=== PATIENT | female | born 1990 | race Caucasian/White ===

== ENCOUNTER 2024-01-28 12:09 | Outpatient (CLI) | payer OTHER ==
[2024-01-28 12:34] LABS: Basophils % (A) 0 %; Eosinophils # (A) 0.2 k/uL (0-0.7); Eosinophils % (A) 2 %; HCT 36.2 % (34.0-46.0); HGB 12.1 gm/dL (11.4-16.0); Lymphocytes # (A) 1.1 k/uL (1.0-4.8); Lymphocytes % (A) 10 %; MCH 28.7 pg (25.0-35.0); MCHC 33.4 g/dL (31.0-37.0); Mean Platelet Volume 9.1; Monocytes # (A) 0.5 k/uL (0-1.0); Monocytes % (A) 4 %; Neutrophils # (A) 9.3 k/uL (1.3-7.7); Neutrophils % (A) 83 %; Platelet Count 249 k/uL (150-450); RBC 4.21 m/uL (3.80-5.40); RDW 14.2 % (11.5-15.5); WBC 11.2 k/uL (3.8-10.6)
[2024-01-28 12:39] LABS: Appearance,Urine Clear (Clear); Bilirubin,Urine Negative (Negative); Blood,Urine Negative (Negative); Color,Urine Colorless; Glucose,Urine (UA) Negative (Negative); Ketones,Urine Negative (Negative); Leukocyte Esterase,Urine Negative (Negative); Nitrite,Urine Negative (Negative); Protein,Urine Negative (Negative); Specific Gravity,Urine 1.006 (1.001-1.035); Urobilinogen,Urine <2.0 mg/dL (<2.0)
[2024-01-28 12:47] LABS: Uric Acid 5.2 mg/dL (3.7-7.4)
[2024-01-28 12:59] LABS: Creatinine,Urine Random 43.8 mg/dL; Protein/Creatinine Ratio,Urine 0.205
[2024-01-28] MEDS: LABETALOL 100 MG TAB PO STA (13:09)
--- NOTE | 2024-01-30 08:19 | P.MSEPDOC ---
Presenting Problems - Arrival Data Date of Arrival on Unit: 01/28/24 Time of Arrival on Unit: 12:00 Mode of Transport: Ambulatory - Complaint OB-Reason for Admission/Chief Complaint: PIH Medical History - Information : 1 Para: 0 Term: 0 : 0 Abortions: Spontaneous or Elective: 0 Number of Living Children: 0 - Gestational Age Gestational Age by CHELSEY (wks/days): 34 Weeks and 1 Days - History Comment: HTN Review of Systems - Review of Systems Constitutional: No problems Breast: No problems ENT: No problems Cardiovascular: No problems Respiratory: No problems Gastrointestinal: No problems Genitourinary: No problems Musculoskeletal: No problems Neurological: No problems Skin: No problems Medical Screen Scoring - Assessment - Baby A Baseline FHR: 135 Heart Rate - NICHD Category: Category I (Normal) NST: Reactive Physician Notification - Physician Notified Physician Notified Date: 01/28/24 Physician Notified Time: 13:02 Physician: Dr Serra New Order Received: Yes (give labetelol 100 mg, recheck BP in 30-45 minutes.) Maternal Triage Index - Maternal Triage Index Presenting for scheduled procedure w/no complaint: Yes - Scheduled/Requesting Priority 5 Scheduled/Requesting Priority 5: Yes Criteria Met for Priority 5: sent over from office with [facility] workup orders. Disposition - Disposition OB Disposition: Discharge to home Discharge Date: 01/28/24 Discharge Time: 14:08 I agree with the RN Medical Screening Exam: Yes Case reviewed; plan agreed upon as documented in EMR&OBIX.: Yes Diagnosis: GESTATIONAL HTN W/O SIGNIFICANT PROTEINURIA, THIRD TRIMESTER
== END 2024-01-28 14:08 | disposition home or self-care (01) ==
LOC: FBPOP 12:09
PROVIDERS: ATTEND Obstetrics & Gynecology Obstetrics
DX: O13.3 Gestational [pregnancy-induced] hypertension without significant proteinuria, third trimester (principal); Z3A.34 34 weeks gestation of pregnancy
CPT/HCPCS: 36415; 59025; 81003; 82570; 83615; 84156; 84450; 84460; 84550; 85025; 99215

== ENCOUNTER 2024-01-31 16:15 | Observation (INO) | payer OTHER ==
[2024-01-31 17:03] LABS: Basophils % (A) 0 %; Eosinophils # (A) 0.2 k/uL (0-0.7); Eosinophils % (A) 2 %; HCT 35.7 % (34.0-46.0); HGB 11.9 gm/dL (11.4-16.0); Lymphocytes # (A) 1.2 k/uL (1.0-4.8); Lymphocytes % (A) 11 %; MCHC 33.4 g/dL (31.0-37.0); MCV 86.7 fL (80.0-100.0); Mean Platelet Volume 8.3; Monocytes # (A) 0.5 k/uL (0-1.0); Monocytes % (A) 5 %; Neutrophils # (A) 9.4 k/uL (1.3-7.7); Neutrophils % (A) 82 %; Platelet Count 248 k/uL (150-450); RBC 4.11 m/uL (3.80-5.40); RDW 13.8 % (11.5-15.5); WBC 11.4 k/uL (3.8-10.6)
[2024-01-31] MEDS: ACETAMINOPHEN TAB 500 MG TAB PO STA (17:03)
[2024-01-31] MEDS: LACTATED RINGERS 1,000 ML IV SCH (17:07)
[2024-01-31 17:12] LABS: ALT 20 U/L (4-34); AST 27 U/L (14-36); African American GFR (CKD) >90 (>60 ml/min/1.73 sqM); Blood Urea Nitrogen 10 mg/dL (7-17); Non-African American GFR(CKD) >90 (>60 ml/min/1.73 sqM); Uric Acid 5.2 mg/dL (3.7-7.4)
[2024-01-31 17:16] LABS: LDH 270 U/L (120-246)
[2024-01-31] MEDS: LABETALOL 200 MG TAB PO SCH (20:45)
[2024-01-31] MEDS: diphenhydrAMINE 25 MG CAP PO PRN (20:45)
--- NOTE | 2024-02-01 09:15 | P.HPOB ---
History of Present Illness H&P Date: 02/01/24 Chief Complaint: IUP at 34-5/7 weeks, gestational hypertension This is a 33-year-old 1 para 0 at 34-5/7 weeks, estimated due date of 03/09 based on last menstrual period. Patient was seen in the office yesterday after noted elevated blood pressures on 01/27. Patient was seen in labor and delivery negative preeclampsia labs were noted, protein creatinine ratio was 0 .2, patient was sent home with labetalol twice daily. Patient noted increased blood pressures through the week, labetalol was increased to 200 mg twice daily. Patient presented to the office today for follow-up. Blood pressure noted to be slightly elevated 130s to 140s over 80s, patient did note a slight headache. Patient has not been sleeping well and is concerned about her blood pressures. Patient in addition reveals she is renovating her home and has been quite busy getting the house ready for the baby. Patient was observed through the night given headache and blood pressures. Patient states she is feeling well this morning. She did sleep last night and headache has resolved. Awaiting 24-hour urine result later this afternoon. On blood work this patient is of the type of O-, rubella status immune, RPR is nonreactive, hepatitis B surface engine is negative, HIV is negative, HCV is negative, she did pass her 1 hour Glucola on 12/16 with a result of 106, she received RhoGAM on 1021. Review of Systems Constitutional: Denies chills, Denies fatigue, Denies fever Ears, nose, mouth and throat: Denies headache Cardiovascular: Reports leg edema Respiratory: Denies dyspnea Gastrointestinal: Denies constipation, Denies diarrhea, Denies nausea, Denies vomiting Genitourinary: Reports Past Medical History History of Any Multi-Drug Resistant Organisms: None Reported Past Anesthesia/Blood Transfusion Reactions: No Reported Reaction Past Psychological History: No Psychological Hx Reported Smoking Status: Never smoker Past Alcohol Use History: None Reported Past Drug Use History: None Reported - Past Family History Mother Additional Family Medical History / Comment(s): Colorectal cancer Father Family Medical History: Coronary Artery Disease (CAD) Additional Family Medical History / Comment(s): melanoma Medications and Allergies Home Medications Medication Instructions Recorded Confirmed Type Aspirin [Adult Low Dose Aspirin EC] 81 mg PO DAILY 01/28/24 01/31/24 History [place]-3/Dha/Epa/Fish Oil [Fish Oil 1 tablet PO DAILY 01/28/24 01/31/24 History 1,000 mg Softgel] Omeprazole [PriLOSEC] 10 mg PO DAILY 01/28/24 01/31/24 History Vit No.179/Iron/Folic 1 tablet PO DAILY 01/28/24 01/31/24 History [ Tablet] Labetalol [Trandate] 200 mg PO BID 01/31/24 01/31/24 History Allergies Allergy/AdvReac Type Severity Reaction Status Date / Time No Known Allergies Allergy Verified 01/31/24 16:34 Exam Osteopathic Statement: *. No significant issues noted on an osteopathic structural exam other than those noted in the History and Physical/Consult. Vital Signs Temp Pulse Resp BP Pulse Ox 01/31/24 16:34 97.7 F 86 18 140/82 99 Intake and Output 01/31/24 02/01/24 02/01/24 22:59 06:59 14:59 Intake Total 600 600 Balance 600 600 Intake: Oral 600 600 Other: # Voids 1 2 Weight 136.078 kg Targeted physical exam is performed this date General Is a well-nourished well- developed female in no acute distress, breathing is nonlabored, heart has a regular rate and rhythm, abdomen is gravid and appropriate for gestational age, heart tones have been category 1 on nonstress test. Cervical exam is deferred. Recent blood pressure 130 over 80s, this is prior to her morning labetalol dose. Results Result Diagrams: 01/31/24 16:52 01/31/24 16:52 Abnormal Lab Results - Last 24 Hours (Table) 01/31/24 01/31/24 Range/Units 16:52 16:52 WBC 11.4 H (3.8-10.6) k/uL Neutrophils # 9.4 H (1.3-7.7) k/uL Lactate Dehydrogenase 270 H (120-246) U/L Assessment and Plan (1) 34 weeks gestation of Current Visit: Yes Status: Acute Code(s): Z3A.34 - 34 WEEKS GESTATION OF SNOMED Code(s): 53654073 (2) Gestational hypertension Current Visit: Yes Status: Acute Code(s): O13.9 - GESTATIONAL HTN W/O SIGNIFICANT PROTEINURIA, UNSP TRIMESTER SNOMED Code(s): 61963615 Plan: 33-year-old 1 para 0 at 34-5/7 weeks with known gestational hypertension. Patient seen in the office yesterday with headache. Patient was sent to OB triage for observation overnight given headache and blood pressure concerns. Patient did well through the night. Patient states headache has resolved. Awaiting 24-hour urine collection. Initial preeclampsia labs noted to be negative. Plan reviewed with patient, questions are answered. Patient is to be taken off work and note was given at her office visit yesterday, will plan modified bedrest if discharged later today.
[2024-02-01 09:56] VITALS: RESP 16
[2024-02-01 17:10] VITALS: TEMP 98.8
[2024-02-01] MEDS: ACETAMINOPHEN TAB 500 MG TAB PO PRN (17:14)
[2024-02-01 18:27] LABS: Total Protein 24 Hour,Urine 660 mg/24hr (42.0-225.0); Total Volume 24 Hour,Urine 6000 mls (800-1800)
[2024-02-01 18:45] VITALS: PULSE 76
[2024-02-01 19:27] LABS: 24-hr Urine Specific Gravity 1.008 (1.001-1.035)
[2024-02-01 19:41] VITALS: BP 134/88
== END 2024-02-01 19:30 | disposition home or self-care (01) ==
LOC: 4FBP 16:15 → INTOOBSV 16:15
PROVIDERS: ADMIT Obstetrics & Gynecology Obstetrics; ATTEND Obstetrics & Gynecology Obstetrics
DX: O13.3 Gestational [pregnancy-induced] hypertension without significant proteinuria, third trimester (principal); Z3A.34 34 weeks gestation of pregnancy; Z79.82 Long term (current) use of aspirin; Z79.899 Other long term (current) drug therapy
CPT/HCPCS: 96360; 96361; 81050; 82565; 83615; 84450; 84460; 84520; 84550; 85025; 84156; G0379; G0378 ×2

== ENCOUNTER 2024-02-11 12:15 | Outpatient (CLI) | payer OTHER ==
[2024-02-11 12:41] VITALS: BP 138/83; PULSE 84; RESP 18; TEMP 96.6
[2024-02-11 12:52] LABS: Appearance,Urine Clear (Clear); Bilirubin,Urine Negative (Negative); Blood,Urine Negative (Negative); Color,Urine Colorless; Glucose,Urine (UA) Negative (Negative); Ketones,Urine Negative (Negative); Leukocyte Esterase,Urine Negative (Negative); Nitrite,Urine Negative (Negative); Protein,Urine Negative (Negative); Specific Gravity,Urine 1.003 (1.001-1.035); Urobilinogen,Urine <2.0 mg/dL (<2.0)
[2024-02-11 13:02] LABS: Basophils % (A) 0 %; Eosinophils # (A) 0.2 k/uL (0-0.7); Eosinophils % (A) 2 %; HCT 36.8 % (34.0-46.0); HGB 11.9 gm/dL (11.4-16.0); Lymphocytes # (A) 1.2 k/uL (1.0-4.8); Lymphocytes % (A) 10 %; MCH 28.3 pg (25.0-35.0); MCHC 32.5 g/dL (31.0-37.0); MCV 87.1 fL (80.0-100.0); Mean Platelet Volume 8.5; Monocytes # (A) 0.7 k/uL (0-1.0); Monocytes % (A) 6 %; Neutrophils % (A) 81 %; Platelet Count 263 k/uL (150-450); RBC 4.22 m/uL (3.80-5.40); RDW 13.9 % (11.5-15.5); WBC 12.3 k/uL (3.8-10.6)
[2024-02-11 13:10] LABS: ALT 19 U/L (4-34); AST 23 U/L (14-36); African American GFR (CKD) >90 (>60 ml/min/1.73 sqM); Blood Urea Nitrogen 9 mg/dL (7-17); Non-African American GFR(CKD) >90 (>60 ml/min/1.73 sqM); Uric Acid 5.5 mg/dL (3.7-7.4)
[2024-02-11 13:29] LABS: Creatinine,Urine Random 18.3 mg/dL; Protein/Creatinine Ratio,Urine 0.71
--- NOTE | 2024-02-15 08:43 | P.MSEPDOC ---
Presenting Problems - Arrival Data Date of Arrival on Unit: 02/11/24 Time of Arrival on Unit: 12:15 Mode of Transport: Ambulatory - Complaint OB-Reason for Admission/Chief Complaint: PIH Comment: Pt presents to triage with written order for PIH work up Medical History - Information : 1 Para: 0 - Gestational Age Gestational Age by CHELSEY (wks/days): 36 Weeks and 1 Days Review of Systems - Review of Systems Constitutional: No problems Breast: No problems ENT: No problems Cardiovascular: No problems Respiratory: No problems Gastrointestinal: No problems Genitourinary: No problems Musculoskeletal: No problems Neurological: No problems Skin: No problems Vital Signs - Temperature Temperature: 96.6 F Temperature Source: Temporal Artery Scan - Pulse Brachial Pulse Rate: 84 Pulse Assessment Method: Automatic Cuff - Respirations Respiratory Rate: 18 Oxygen Delivery Method: Room Air - Blood Pressure Right Arm Sitting Blood Pressure: 138/83 Blood Pressure Mean: 101 Blood Pressure Source: Automatic Cuff Physician Notification - Physician Notified Physician Notified Date: 02/11/24 Physician Notified Time: 12:15 Physician: Kristy Serra New Order Received: Yes - Notification Comment Comment: Spk c\Dr. Serra, aware of pt and triage visit. Reviewed labs and BPs. Pt to keep appt for dilapan placement 02/13. Pt to be discharged home c\Pree instructions. Maternal Triage Index - Maternal Triage Index Presenting for scheduled procedure w/no complaint: Yes - Scheduled/Requesting Priority 5 Scheduled/Requesting Priority 5: Yes Criteria Met for Priority 5: Pt sent from office for PIH workup r/t elevated BP in office, pt states BPs at home have been WNL. Disposition - Disposition OB Disposition: Observe, Discharge to home, Written follow up instructions reviewed Discharge Date: 02/11/24 Discharge Time: 14:00 I agree with the RN Medical Screening Exam: Yes Case reviewed; plan agreed upon as documented in EMR&OBIX.: Yes Diagnosis: RELATED CONDITIONS, UNSPECIFIED, THIRD TRIMESTER
== END 2024-02-11 13:57 | disposition home or self-care (01) ==
LOC: FBPOP 12:15
PROVIDERS: ATTEND Obstetrics & Gynecology Obstetrics
DX: O26.93 Pregnancy related conditions, unspecified, third trimester (principal); Z3A.36 36 weeks gestation of pregnancy
CPT/HCPCS: 36415; 59025; 81003; 82565; 82570; 84156; 84450; 84460; 84520; 84550; 85025

== ENCOUNTER 2024-02-14 16:19 | Outpatient (CLI) | payer OTHER ==
[2024-02-14 17:33] LABS: Basophils % (A) 0 %; Eosinophils # (A) 0.2 k/uL (0-0.7); Eosinophils % (A) 2 %; HCT 35.8 % (34.0-46.0); HGB 11.9 gm/dL (11.4-16.0); Lymphocytes # (A) 1.2 k/uL (1.0-4.8); Lymphocytes % (A) 11 %; MCH 28.9 pg (25.0-35.0); MCHC 33.3 g/dL (31.0-37.0); MCV 86.8 fL (80.0-100.0); Mean Platelet Volume 8.7; Monocytes # (A) 0.5 k/uL (0-1.0); Monocytes % (A) 4 %; Neutrophils # (A) 9.2 k/uL (1.3-7.7); Neutrophils % (A) 83 %; Platelet Count 275 k/uL (150-450); RBC 4.12 m/uL (3.80-5.40); RDW 14.1 % (11.5-15.5); WBC 11.2 k/uL (3.8-10.6)
[2024-02-14] MEDS: LABETALOL 200 MG TAB PO SCH (18:11)
[2024-02-14 18:18] LABS: Uric Acid 5.8 mg/dL (3.7-7.4)
[2024-02-14 18:50] VITALS: BP 143/73; PULSE 92; RESP 18; TEMP 97.7
[2024-02-14 19:19] LABS: Protein/Creatinine Ratio,Urine 0.245
== END 2024-02-14 20:10 | disposition home or self-care (01) ==
LOC: UNDOADMIN 16:19 → 4FBP 16:19 → FBPOP 16:19 → UNDODISIN 20:10
PROVIDERS: ATTEND Obstetrics & Gynecology Obstetrics
DX: O14.93 Unspecified pre-eclampsia, third trimester (principal); Z3A.39 39 weeks gestation of pregnancy
CPT/HCPCS: 82570; 84156; 84450; 84460; 84520; 84550; 85025

== ENCOUNTER 2024-02-15 19:09 | Inpatient (IN) | payer OTHER ==
[2024-02-15] MEDS ORDERED: OXYTOCIN 10 UNIT/ML 1 ML VIAL IM PRN (19:35)
[2024-02-15] MEDS ORDERED: TRANEXAMIC 1,000 MG/100ML-NACL 1,000 MG in EMPTY BAG 1 BAG IV PRN (19:35)
[2024-02-15] MEDS ORDERED: LIDOCAINE 0.5% (PF) 5 MG/ML (50 ML SDV) SQ PRN (19:35)
[2024-02-15] MEDS ORDERED: METHYLERGONOVINE 0.2 MG/ML 1 ML AMP IM PRN (19:35)
[2024-02-15] MEDS ORDERED: TERBUTALINE 1 MG/ML VIAL SQ PRN (19:35)
[2024-02-15] MEDS ORDERED: miSOPROStoL 200 MCG TAB RECTAL PRN (19:35)
[2024-02-15] MEDS ORDERED: miSOPROStoL 200 MCG TAB PO PRN (19:35)
[2024-02-15] MEDS ORDERED: CARBOPROST TROMETHAMINE 250 MCG/ML 1 ML AMP IM PRN (19:35)
[2024-02-15 19:55] LABS: Basophils % (A) 0 %; Eosinophils # (A) 0.2 k/uL (0-0.7); Eosinophils % (A) 1 %; HCT 36.2 % (34.0-46.0); HGB 11.8 gm/dL (11.4-16.0); Lymphocytes # (A) 1.3 k/uL (1.0-4.8); Lymphocytes % (A) 11 %; MCH 28.5 pg (25.0-35.0); MCHC 32.7 g/dL (31.0-37.0); Mean Platelet Volume 8.7; Monocytes # (A) 0.5 k/uL (0-1.0); Monocytes % (A) 4 %; Neutrophils # (A) 10.1 k/uL (1.3-7.7); Neutrophils % (A) 83 %; Platelet Count 253 k/uL (150-450); RBC 4.16 m/uL (3.80-5.40); RDW 14.1 % (11.5-15.5); WBC 12.2 k/uL (3.8-10.6)
[2024-02-15] MEDS: LABETALOL 200 MG TAB PO SCH (20:03)
--- NOTE | 2024-02-15 20:11 | P.HPOB ---
History of Present Illness H&P Date: 02/15/24 Chief Complaint: IUP at 36-5/7 weeks, preeclampsia severe features 33-year-old 1 para 0 at 36-5/7 weeks, estimated due date 03/09/24 of based on last menstrual period consistent with 9 week ultrasound. Patient would have random elevated blood pressures in the beginning of that resolved on recheck. Patient states she gets very nervous in doctors office and typically blood pressure becomes normal on recheck. Patient had noted normal blood pressures at home. Patient has been followed since 34 weeks for elevated blood pressure and was placed on labetalol 200mg bid. Patient has been undergoing testing and has been seen twice in the hospital for elevated blood pressures in the office 140s to 150s over 90s to 100. Patient did undergo 24-hour urine evaluation, which was noted to be elevated, PCR ratio earlier this week noted to be 0.7. Patient states she has been dealing with a headache all day, no relief with Tylenol. Patient states she just feels off. She has noted increased lower extremity swelling in addition. She denies visual changes. Patient does note good movement. She denies contractions vaginal bleeding or loss of fluid. Ultrasound was completed on 02/06 revealing a 5 pound 14 ounce infant 45th percentile, normal amniotic fluid index of 18.7. Vertex presentation. On blood work this patient is a blood type of O-, rubella status immune, RPR is nonreactive, hepatitis B surface engine is negative, HIV negative, HCV is negative, positive group beta strep culture. She did receive RhoGAM on 12/16. Review of Systems Constitutional: Reports fatigue, Denies chills, Denies fever Ears, nose, mouth and throat: Reports headache Cardiovascular: Reports leg edema Respiratory: Denies dyspnea Gastrointestinal: Reports heartburn, Denies nausea, Denies vomiting Genitourinary: Reports Past Medical History Past Medical History: No Reported History History of Any Multi-Drug Resistant Organisms: None Reported Additional Past Surgical History / Comment(s): colonoscopy Past Anesthesia/Blood Transfusion Reactions: No Reported Reaction Past Psychological History: No Psychological Hx Reported Smoking Status: Never smoker Past Alcohol Use History: None Reported Past Drug Use History: None Reported - Past Family History Mother Additional Family Medical History / Comment(s): Colorectal cancer Father Family Medical History: Coronary Artery Disease (CAD) Additional Family Medical History / Comment(s): melanoma Medications and Allergies Home Medications Medication Instructions Recorded Confirmed Type Aspirin [Adult Low Dose Aspirin EC] 81 mg PO DAILY 01/28/24 02/15/24 History Vit No.179/Iron/Folic 1 tablet PO DAILY 01/28/24 02/15/24 History [ Tablet] Labetalol [Trandate] 200 mg PO BID 01/31/24 02/15/24 History [place]-3/Dha/Epa/Fish Oil [Fish Oil 1 tab PO DAILY 02/15/24 02/15/24 History 1,000 mg Softgel] Allergies Allergy/AdvReac Type Severity Reaction Status Date / Time No Known Allergies Allergy Verified 02/11/24 12:29 Exam Osteopathic Statement: *. No significant issues noted on an osteopathic structural exam other than those noted in the History and Physical/Consult. Vital Signs Temp Pulse Resp BP Pulse Ox 02/15/24 19:26 97.1 F L 99 18 157/85 98 Intake and Output 02/15/24 02/15/24 02/15/24 06:59 14:59 22:59 Other: Weight 136.078 kg Targeted physical exam is performed this date General Is well-nourished well- developed female in no acute distress, breathing appears nonlabored, abdomen is gravid, she is closed on cervical exam, Dilapan procedure is reviewed with patient. Benefits were discussed. Informed consent was obtained. A sterile lighted speculum was placed into the vaginal vault and the cervix was visualized very. The cervix was cleaned with Betadine solution. A sponge stick was then used to grasp the anterior cervical lip and straighten the cervical canal. Another sponge stick was used to grasp the hand le of the Dilapan kong and gently inserted the kong through the external cervical os gradually without force. This was repeated until 5 rods were inserted. When the procedure was completed the vacuum was removed without difficulty. Patient tolerated insertion well Results Result Diagrams: 02/15/24 19:36 Abnormal Lab Results - Last 24 Hours (Table) 02/15/24 Range/Units 19:36 WBC 12.2 H (3.8-10.6) k/uL Neutrophils # 10.1 H (1.3-7.7) k/uL Assessment and Plan (1) 36 to 37 weeks gestation of Current Visit: Yes Status: Acute Code(s): MTV7071 - SNOMED Code(s): 3663 26456 (2) Preeclampsia Narrative/Plan: Severe features Current Visit: Yes Status: Acute Code(s): O14.90 - UNSPECIFIED PRE- ECLAMPSIA, UNSPECIFIED TRIMESTER SNOMED Code(s): 174357300 (3) Headache Narrative/Plan: Not little relieved with oral Tylenol Current Visit: Yes Status: Acute Code(s): R51.9 - HEADACHE, UNSPECIFIED SNOMED Code(s): 24035672 Plan: 33-year-old 1 para 0 at 36-5/7 weeks presents for induction of labor secondary to preeclampsia with severe features, initial BP 150's/90's. Patient has noted elevated blood pressure and is on labetalol 200 mg twice daily. Patient with increase in headache symptoms today, no changes in vision but states she "felt off". Dilapan induction of labor was begun. Pain relief options reviewed Will plan Pitocin augmentation of labor composition mixer at 5 AM. Plan to leave Dilapan in place until at least 12 hours after insertion.
[2024-02-15] MEDS: diphenhydrAMINE 25 MG CAP PO STA (20:29)
[2024-02-15] MEDS: LACTATED RINGERS 1,000 ML IV SCH (20:31)
[2024-02-15] MEDS: ACETAMINOPHEN IV (For NPO) 1,000 MG in EMPTY BAG 1 BAG IVPB STA (20:37)
[2024-02-16] MEDS: OXYTOCIN 30 UNITS/500 ML NS 30 UNIT in SALINE 1 500ML.BAG IV SCH (05:22)
[2024-02-16] MEDS: AMPICILLIN 2,000 MG in SODIUM CHLORIDE 0.9% 100 ML IVPB ONE (05:42)
[2024-02-16] MEDS: NALBUPHINE 10 MG/ML (10 ML MDV) IV PRN (05:54)
[2024-02-16] MEDS: AMPICILLIN 1,000 MG in SODIUM CHLORIDE 0.9% 50 ML IVPB SCH (09:02)
--- NOTE | 2024-02-16 09:36 | P.PN ---
Progress Note - Text Progress Note Date: 02/16/24 33-year-old 1 para 0 at 36-6/7 weeks admitted for medical induction of labor secondary to preeclampsia. Patient with noted elevated blood pressure yesterday 158 over 86 with headache. Dilapan was placed last evening, patient tolerated insertion well. Pitocin augmentation of labor was begun this morning at 5 AM. Pitocin noted to be 10 milliunits this morning at the time of Dilapan removal, cervix noted to be 3/50/-2. Amniotomy performed and clear fluid obtained. Assessment IUP at 36 and 6 Preeclampsia Plan Continue Pitocin augmentation of labor, options for analgesia are discussed. She will consider.
[2024-02-16] MEDS ORDERED: fentaNYL (PF) 50 MCG/ML 5 ML AMP ONE (17:40)
[2024-02-16] MEDS ORDERED: SODIUM CHLORIDE 0.9% 250 ML BAG ONE (17:40)
[2024-02-16] MEDS ORDERED: ROPIVACAINE 5 MG/ML 30 ML VIAL ONE (17:40)
[2024-02-16] MEDS ORDERED: OXYTOCIN 10 UNIT/ML 1 ML VIAL IM PRN (23:40)
[2024-02-16] MEDS ORDERED: METHYLERGONOVINE 0.2 MG/ML 1 ML AMP IM PRN (23:40)
[2024-02-16] MEDS ORDERED: miSOPROStoL 200 MCG TAB PO PRN (23:40)
[2024-02-16] MEDS ORDERED: TRANEXAMIC 1,000 MG/100ML-NACL 1,000 MG in EMPTY BAG 1 BAG IV PRN (23:40)
[2024-02-16] MEDS ORDERED: CARBOPROST TROMETHAMINE 250 MCG/ML 1 ML AMP IM PRN (23:40)
[2024-02-17] MEDS: CITRIC ACID-SODIUM CITRATE 15 ML CUP PO ONE (00:39)
[2024-02-17] MEDS: ceFAZolin 3 GM in SODIUM CHLORIDE 0.9% 100 ML IVPB ONE (00:40)
[2024-02-17] MEDS ORDERED: ONDANSETRON 4 MG/2 ML VIAL ONE (01:01)
[2024-02-17] MEDS ORDERED: MORPHINE SULFATE (PF) 0.3 MG/0.3 ML SYR ONE (01:01)
[2024-02-17] MEDS ORDERED: LIDOCAINE HCL/PF 20 MG/ML 10 ML AMP ONE (01:01)
--- NOTE | 2024-02-17 01:53 | P.OP ---
Date of Procedure: 02/17/24 Preoperative Diagnosis: IUP at 37 and 0/7 weeks, preeclampsia, nonreassuring heart tones, remote from delivery Postoperative Diagnosis: Same Procedure(s) Performed: Primary low-transverse section Anesthesia: epidural Surgeon: Kristy Serra Office Professional #1: Rudi Vanegas Estimated Blood Loss (ml): 419 IV fluids (ml): 1,000 Urine output (ml): 300 (Clear yellow) Pathology: other (Placenta) Condition: stable Disposition: observation Indications for Procedure: 33-year-old 1 para 0 at 37-0/7 weeks that presented for induction of labor secondary to preeclampsia. Patient has noted blood pressures 150s over 90s to 160s over 100s, 24-hour urine revealing total protein of 700. Last PCR ratio 0.7. Patient was admitted and Dilapan was placed. Patient did well through the night. Patient was noted to be 3/50/-2 station amniotomy is performed after Dilapan was removed. Patient made minimal change through the day but did become uncomfortable and request epidural. Epidural was placed without difficulty by the anesthesia department. Patient made no further progress, chronic late decelerations were noted after contractions Pitocin was turned off position changes resolved with minimal variability. On cervical exam her cervix was noted to be swelling and 3 cm. Patient was counseled on exam and status. After discussion all questions were answered patient and agree with primary . Operative Findings: Viable male infant delivered at 118, weight of 5 pounds 15 ounces, Apgars of 8 and 9 at 1 and 5 minutes respectively. Infant noted to be in an occiput transverse presentation high in the pelvis, caput noted Normal uterus tubes and ovaries were appreciated. Description of Procedure: Patient was taken back to the operating suite where spinal anesthesia was found be adequate by the anesthesia department. She was prepped and draped in the normal sterile fashion in the dorsal supine position. A Pfannenstiel skin incision was made with a scalpel and carried through the underlying layer of fascia. The fascia was incised in the midline and extended laterally. The superior aspect of the fascial incision was then grasped with David clamps, elevated and the underlying rectus muscle was dissected off sharply. The inferior aspect of the fascial incision was then grasped with David clamps, el evated and the underlying rectus muscle was dissected off sharply. The rectus muscles were midline the peritoneum was identified and entered. The bladder blade was then inserted into the pelvis. The vesicouterine peritoneum was identified and the bladder flap was created using sharp and blunt dissection. The bladder blade was then reinserted into the pelvis. Scalpel was then used to perform a hysterotomy incision. The infant was encountered in a vertex presentation and delivered in the usual fashion. Spontaneous cry was noted. The umbilical cord was doubly clamped and cut. The fat was then passed off to waiting RN. The placenta was delivered manually and the uterus was cleared of all clots and debris. The uterus was exteriorized and the hysterotomy incision was closed with an 0 Vicryl in a running locked fashion a second imbricating suture was formed with 0 Vicryl. Bleeding was noted in the midportion therefore a [id number] suture was used to obtain hemostasis. The uterus was then returned to the abdomen and the gutters were cleared of all clots and debris. A small amount of oozing was noted on the vesicouterine peritoneal edge therefore surgical powder was placed along this edge. Hemostasis was then noted. The peritoneum was then loosely reapproximated. The rectus muscles were inspected and found to be hemostatic. The fascia was closed with 0 Vicryl from 1 lateral edge to the midline the other lateral edge to the midline. The subcutaneous tissue was found to be hemostatic and closed with 3-0 Vicryl in a running fashion. The skin was closed with 4-0 Vicryl in a subcuticular fashion. All counts were noted be correct x 2. Patient and tolerated delivery well and are resting comfortably.
[2024-02-17] MEDS ORDERED: diphenhydrAMINE 50 MG/ML 1 ML VIAL IVP PRN ×2 (02:05)
[2024-02-17] MEDS ORDERED: ZOLPIDEM 5 MG TAB PO PRN (02:05)
[2024-02-17] MEDS ORDERED: NALOXONE 0.4 MG/ML 1 ML VIAL IV PRN (02:05)
[2024-02-17] MEDS ORDERED: METOCLOPRAMIDE 5 MG/ML 2 ML VIAL IVP PRN (02:05)
[2024-02-17] MEDS ORDERED: diphenhydrAMINE 50 MG CAP PO PRN (02:05)
[2024-02-17] MEDS ORDERED: ONDANSETRON 4 MG/2 ML VIAL IVP PRN (02:05)
[2024-02-17] MEDS ORDERED: SIMETHICONE 80 MG CHEWABLE PO PRN (02:05)
[2024-02-17] MEDS ORDERED: diphenhydrAMINE 25 MG CAP PO PRN (02:05)
[2024-02-17] MEDS: ACETAMINOPHEN IV (For NPO) 1,000 MG in EMPTY BAG 1 BAG IVPB ONE (03:55)
[2024-02-17] MEDS: Rhogam IMMUNE GLOBULIN 1,500 UNIT/1 ML IM ONE (06:48)
[2024-02-17] MEDS: PRENATAL VIT-IRON-FOLIC ACID 1 EACH TABLET PO SCH (08:55)
[2024-02-17] MEDS: IBUPROFEN IV 800 MG in SODIUM CHLORIDE 0.9% 250 ML IV ONE (08:56)
[2024-02-17] MEDS: IBUPROFEN 800 MG TAB PO SCH (09:23)
[2024-02-17] MEDS: LACTATED RINGERS 1,000 ML IV SCH (09:24)
[2024-02-17] MEDS: SENNOSIDES-DOCUSATE SODIUM 1 EACH TAB PO SCH (09:24)
--- NOTE | 2024-02-17 11:26 | P.PNOBGPC ---
Subjective - Subjective Patient reports: Reports appetite normal, Reports voiding normally, Reports pain well controlled, Reports ambulating normally : doing well Objective - Vital Signs Latest vital signs: Vital Signs Temp Pulse Resp BP Pulse Ox 02/17/24 08:00 97.5 F L 72 16 117/75 98 02/17/24 03:47 94 16 117/59 100 02/17/24 03:32 93 16 132/67 99 02/17/24 03:17 96 16 130/66 100 02/17/24 03:02 86 16 139/70 100 02/17/24 02:47 99 16 136/69 99 02/17/24 02:32 92 16 136/67 98 02/17/24 02:17 83 16 133/69 98 02/17/24 02:02 89 18 149/78 97 02/17/24 01:47 97.3 F L 91 18 136/70 98 Intake and Output 02/16/24 02/17/24 02/17/24 22:59 06:59 14:59 Intake Total 1000 Output Total 500 1844 800 Balance -500 -844 -800 Intake: IV 1000 Output: Urine 500 1400 800 Uretheral (Ruiz) 800 Output, Quantitative 444 Blood Loss - Exam Extremities: Present: normal, edema (2+ pitting edema to mid calf.) Abdomen: Present: normal appearance, soft. Absent: distention, tenderness Incision: Present: normal, dry, intact Uterus: Present: normal, firm (The uterine fundus is tonic and appropriately tender below the umbilicus.) Assessment and Plan (1) Status post section Current Visit: Yes Status: Acute Code(s): Z98.891 - HISTORY OF UTERINE SCAR FROM PREVIOUS SURGERY SNOMED Code(s): 124179302 (2) Preeclampsia Current Visit: Yes Status: Acute Code(s): O14.90 - UNSPECIFIED PRE- ECLAMPSIA, UNSPECIFIED TRIMESTER SNOMED Code(s): 636635472 Plan: Blood pressures this morning have been entirely normal without medication and labetalol has been held. We will continue to follow her vital signs, particularly blood pressure, closely. Assuming her blood pressures remain in the normal range, there is a strong chance that she will be discharged home tomorrow pending no further complications.
[2024-02-17] MEDS: ACETAMINOPHEN TAB 500 MG TAB PO SCH ×2 (12:02→21:58)
--- NOTE | 2024-02-17 16:27 | P.PN ---
Progress Note - Text Progress Note Date: 02/17/24 Postoperative day 1 status post section under epidural anesthesia, and epidural morphine given for postoperative analgesia, patient doing well, there is no anesthesia related complications, Patient had no headache, vital signs stable , Assessment and plan= postop day 1 status post , doing well there is no anesthesia related complication.
[2024-02-18 06:53] LABS: Basophils % (A) 0 %; Eosinophils # (A) 0.2 k/uL (0-0.7); Eosinophils % (A) 2 %; HCT 32.2 % (34.0-46.0); HGB 10.4 gm/dL (11.4-16.0); Lymphocytes # (A) 1.3 k/uL (1.0-4.8); Lymphocytes % (A) 13 %; MCH 28.6 pg (25.0-35.0); MCHC 32.3 g/dL (31.0-37.0); MCV 88.4 fL (80.0-100.0); Mean Platelet Volume 8.7; Monocytes # (A) 0.6 k/uL (0-1.0); Monocytes % (A) 6 %; Neutrophils # (A) 7.8 k/uL (1.3-7.7); Neutrophils % (A) 78 %; Platelet Count 209 k/uL (150-450); RBC 3.64 m/uL (3.80-5.40); RDW 14.4 % (11.5-15.5)
--- NOTE | 2024-02-18 07:55 | P.DS ---
Providers Date of admission: 02/15/24 19:09 Expected date of discharge: 02/18/24 Attending physician: Kristy Serra Primary care physician: Stated None - Discharge Diagnosis(es) (1) Status post section Current Visit: Yes Status: Acute (2) Preeclampsia Current Visit: Yes Status: Acute Hospital Course: The patient is a 33-year-old 1 para 0 admitted at 36-5/7 weeks by good dating parameters. She is admitted for induction of labor secondary to preeclampsia with severe features including headache in general sense of feeling poorly with elevated blood pressures in the face of potential chronic hypertension. She has been managed on labetalol 200 mg twice daily but co ntinues to have elevated blood pressures and now, as noted, reports unrelenting headache for 1 to 2 days. On labor and delivery, she had Dilapan placed overnight after which time she had artificial rupture of membranes for clear fluid and Pitocin augmentation was started. She is also positive for group B strep and therefore had antibiotic prophylaxis started. She made some progress in labor but ultimately began to have repetitive late decelerations and the decision was made to proceed to the operating room for nonreassuring wellbeing. She was taken to the operating room where she was delivered of a viable 5 pound 15 ounce baby boy with Apgars of 8 at 1 minute and 9 at 5 minutes. The patient's course was entirely unremarkable with completely normal blood pressures without labetalol. Her moderate to significant edema had also significant reduced by the morning of postoperative day #2. She was deemed stable for discharge on and postoperative day #2 and was discharged home to follow-up in the office in 2 weeks for an incision check in 6 weeks routinely. Discharge instructions included calling for any significantly increased bleeding or foul-smelling lochia, significantly increased fever or abdominal pain, perineal complaints, breast complaints, incisional complaints, or anything else that concerned her. She was additionally instructed to have nothing in the vagina for at least 6 weeks time to include intercourse and to abstain from any heavy lifting over the same period of time. She was lastly instructed to do no driving until off of all pa in medications or 2 weeks time, whichever came first. She understood her instructions and agrees to follow-up as noted above. Discharge medications included continued vitamins as she has opted to breast-feed. She was otherwise to use [id number] analgesic pain medications as needed. She was provided with a prescription for oxycodone 5 mg, 1-2 p.o. every 6 hours as needed pain, #20 dispensed with no refills. Paternal blood type is O- and cord blood was sent for evaluation for the necessity of RhoGAM prior to discharge. Rubella status is immune. Discharge hemoglobin and hematocrit were 10.4 and 32.2 respectively. Procedures: #1. Dilapan cervical ripening #2. Artificial rupture of membranes #3. Pitocin induction #4. Antibiotic prophylaxis #5. Primary low-transverse section Patient Condition at Discharge: Stable Plan - Discharge Summary New Discharge Prescriptions: No Action Labetalol [Trandate] 200 mg PO BID Vit No.179/Iron/Folic [ Tablet] 1 tablet PO DAILY Aspirin [Adult Low Dose Aspirin EC] 81 mg PO DAILY [place]-3/Dha/Epa/Fish Oil [Fish Oil 1,000 mg Softgel] 1 tab PO DAILY Discharge Medication List Aspirin [Adult Low Dose Aspirin EC] 81 mg PO DAILY 01/28/24 [History] Vit No.179/Iron/Folic [ Tablet] 1 tablet PO DAILY 01/28/24 [History] Labetalol [Trandate] 200 mg PO BID 01/31/24 [History] [place]-3/Dha/Epa/Fish Oil [Fish Oil 1,000 mg Softgel] 1 tab PO DAILY 02/15/24 [History] Follow up Appointment(s)/Referral(s): Kristy Serra DO [Doctor of Osteopathic Medicine] - 2 Weeks Discharge Disposition: HOME SELF-CARE
[2024-02-19 04:49] VITALS: RESP 16
[2024-02-19 10:10] VITALS: BP 147/97; PULSE 82; TEMP 98.9
== END 2024-02-19 14:27 | disposition home or self-care (01) | DRG 788 ==
LOC: 4FBP 19:09
PROVIDERS: ADMIT Obstetrics & Gynecology Obstetrics; ATTEND Obstetrics & Gynecology Obstetrics
PROC: 10907ZC Drainage of Amniotic Fluid, Therapeutic from Products of Conception, Via Natural or Artificial Opening (ICD-10-PCS; 2024-02-15)
PROC: 0U7C7ZZ Dilation of Cervix, Via Natural or Artificial Opening (ICD-10-PCS; 2024-02-15)
PROC: 10D00Z1 Extraction of Products of Conception, Low, Open Approach (ICD-10-PCS; principal; 2024-02-17 01:03)
DX: O14.14 Severe pre-eclampsia complicating childbirth (principal); O32.8XX0 Maternal care for other malpresentation of fetus, not applicable or unspecified; O76 Abnormality in fetal heart rate and rhythm complicating labor and delivery; Z37.0 Single live birth; Z3A.37 37 weeks gestation of pregnancy; Z79.82 Long term (current) use of aspirin
CPT/HCPCS: 59200; 85025; 85461; 86850; 86900; 86901; 88307